=== PATIENT | female | born 1990 ===

== ENCOUNTER 2021-12-17 01:51 | Inpatient (IN) | payer SELFPAY ==
[2021-12-17] MEDS ORDERED: TERBUTALINE 1 MG/1 ML INJ SUB-Q PRN ×2 (02:15→03:01)
[2021-12-17] MEDS ORDERED: CARBOPROST TROMETHAMINE 250 MCG/1 ML INJ IM PRN ×2 (02:15→03:01)
[2021-12-17] MEDS ORDERED: OXYTOCIN 10 UNIT/1 ML INJ IM PRN ×2 (02:15→03:01)
[2021-12-17] MEDS ORDERED: LIDOCAINE (2%) 20 MG/1 ML VIAL 20 ML MDV INFILTRATI ONE ×2 (02:15→03:01)
[2021-12-17] MEDS ORDERED: miSOPROStol 200 MCG TAB PR PRN ×2 (02:15→03:01)
[2021-12-17] MEDS ORDERED: ePHEDrine SULFATE 50 MG/1 ML INJ IV PRN ×2 (02:15→03:01)
[2021-12-17] MEDS ORDERED: LACTATED RINGERS 1,000 ML IV SCH ×2 (02:15→03:15)
[2021-12-17] MEDS ORDERED: MINERAL OIL 30 ML ORAL LIQD PO PRN ×2 (02:15→03:01)
[2021-12-17] MEDS ORDERED: METHYLERGONOVINE MALEATE 0.2 MG/ML VIAL IM PRN ×2 (02:15→03:01)
[2021-12-17] MEDS ORDERED: LOPERAMIDE 2 MG CAP PO PRN ×2 (02:15→03:01)
[2021-12-17] MEDS ORDERED: LACTATED RINGERS 1,000 ML ONE (02:21)
[2021-12-17] MEDS ORDERED: AMPICILLIN/NS 2 GM/100 ML 2 GM/100 ML BAG IV ONE ×2 (02:45→02:50)
[2021-12-17 02:55] LABS: Hemoglobin 11.6 gm/dl (10.1-14.3); Mean Corpuscular HGB Conc 32 % (30-34); Mean Corpuscular Volume 82 fl (79-97); Platelet Count 291 K/mm3 (140-440); Red Blood Count 4.41 M/mm3 (3.65-5.03); Red Cell Distribution Width 14.8 % (13.2-15.2)
[2021-12-17] MEDS ORDERED: OXYTOCIN DRIP 30 UNITS/500 ML BAG IV SCH ×4 (03:00→04:00)
[2021-12-17] MEDS ORDERED: ACETAMINOPHEN 325 MG TAB PO PRN (03:01)
[2021-12-17] MEDS ORDERED: NalbUPHINE 10 MG/1 ML INJ IV PRN (03:01)
[2021-12-17] MEDS ORDERED: PROMETHAZINE 25 MG TAB PO PRN (03:01)
[2021-12-17] MEDS ORDERED: fentaNYL 100 MCG/2 ML INJ IV PRN (03:01)
--- NOTE | 2021-12-17 03:44 | History and Physical Report ---
History of Present Illness Date of examination: 12/17/21 Chief complaint: ctx History of present illness: at 38.6wks with EDC 12/27/21 per pt. records not available. I was called by triage nurse pt in active labor from [facility] covered by [facility]. Pt admits to movement, SROM in triage clear fluid, painful ctx however pt declines pain med and pt admits to vag spotting. Denies headache. Past History Past Medical History: no pertinent history Past Surgical History: no surgical history Social history: no significant social history - Obstetrical History Expected Date of Delivery: 12/25/21 Actual Gestation: 38 Week(s) 6 Day(s) : 3 Hx # Term Pregnancies: 2 Number of Living Children: 2 Medications and Allergies Allergies Allergy/AdvReac Type Severity Reaction Status Date / Time No Known Allergies Allergy Verified 12/17/21 02:20 Active Meds: Active Medications Carboprost Tromethamine (Carboprost Tromethamine 250 Mcg/1 Ml Inj) 250 mcg IM ONCE PRN PRN Reason: Uterine Bleeding Ephedrine Sulfate (Ephedrine Sulfate 50 Mg/1 Ml Inj) 10 mg IV Q2M PRN PRN Reason: Hypotension Oxytocin/Sodium Chloride (Pitocin/Ns 30 Unit/500ml) 30 units in 500 mls @ 2 mls/hr IV TITR HEIKE; Protocol Lactated Ringer's (Lactated Ringers) 1,000 mls @ 125 mls/hr IV DIRECT HEIKE Oxytocin/Sodium Chloride (Pitocin/Ns 30 Unit/500ml) 30 units in 500 mls @ 40 mls/hr IV TITR HEIKE; Protocol Ampicillin Sodium (Ampicillin/Ns 2 Gm/100 Ml) 2 gm in 100 mls @ 100 mls/hr IV ONCE ONE; Protocol Stop: 12/17/21 03:49 Loperamide HCl (Loperamide 2 Mg Cap) 2 mg PO ONCE PRN PRN Reason: give with Hemabate Methylergonovine Maleate (Methylergonovine Maleate 0.2 Mg/Ml Vial) 0.2 mg IM ONCE PRN PRN Reason: Uterine Bleeding Mineral Oil (Mineral Oil 30 Ml Oral Liqd) 30 ml PO QHS PRN PRN Reason: Constipation Misoprostol (Misoprostol 200 Mcg Tab) 800 mcg [place] ONCE PRN PRN Reason: Uterine Bleeding Oxytocin (Oxytocin 10 Unit/1 Ml Inj) 10 unit IM ONCE PRN PRN Reason: Uterine Bleeding Terbutaline Sulfate (Terbutaline 1 Mg/1 Ml Inj) 0.25 mg SUB-Q ONCE PRN PRN Reason: Hyperstimulation/Hypertonicity Review of Systems All systems: negative (ctx and SROM in triage) - Vital Signs Vital signs: Vital Signs Pulse BP 89 129/75 12/17/21 02:31 12/17/21 02:31 Temp Pulse Resp BP Pulse Ox 99 H 129/75 99 12/17/21 03:04 12/17/21 02:31 12/17/21 03:04 - Physical Exam Breasts: Positive: deferred Cardiovascular: Regular rate Lungs: Positive: Normal air movement Genitourinary (Female): Positive: normal external genitalia Vagina: Positive: normal moisture Uterus: Positive: enlarged (non-tender, gravid) Extremities: Positive: normal - Obstetrical FHR: category 1 Uterine Contraction Monitor Mode: External Cervical Dilatation: 9.5 (6-7cm in triage by nurse) Cervical Effacement Percentage: 100 station: 0 Uterine Contraction Pattern: Regular Uterine Contraction Intensity: Strong/Firm Results Result Diagrams: 12/17/21 02:22 Abnormal lab results 12/17/21 Range/Units 02:22 WBC 12.8 H (4.5-11.0) K/mm3 MCH 26 L (28-32) pg All other labs normal. Assessment and Plan Term preg in active labor, unknown GBS and currently receiving 1st dose of PCN 1. Admit to labor and delivery 2. Prepare for delivery now Expect . 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
--- NOTE | 2021-12-17 03:56 | Procedure Note ---
OB Delivery Note - Delivery Date of Delivery: 12/17/21 Surgeon: TRACIE STARKEY Estimated blood loss: other (150cc) - Vaginal Delivery presentation: vertex Delivery position: OA Intrapartum events: precipitous labor- <3hr (Unknown GBS) Delivery induction: none Delivery monitor: external FHT, external uterine Route of delivery: Delivery placenta: spontaneous Delivery cord: 3 umbilical vessels Episiotomy: none Delivery laceration: 1st degree (repaired with 2-0 chromic figure of 8 suture x1) Delivery repair: chromic Anesthesia: none Delivery comments: Precipitous SAVD uncomplicated with viable male presenting with both shoulders at the same time. No ADONIS nurse available for delivery. Charge nurse took care of baby and gave APGARS. Placenta delivered spontaneous complete and intact with 3v cord. Cervix visualized and no lacerations seen. Pt sustained 1st degree laceration and nurse states no lidocaine available due to shortage in hospital. Pt told and I was allowed with repair with figure of 8 x1 using chromic 2-0 suture. Pt given IV pitocin and bimanual done with uterine fundus firm. Mom and baby stable. EBL 150cc. Possible contaminated of laceration with pt having semiformed light brown stool during labor. - Infant A at 1 minute: 8 at 5 minutes: 9 Infant Gender: Male (wt 3260g; clear amniotic fluid)
[2021-12-17 04:29] LABS: Basophils # (Auto) 0.1 K/mm3 (0.0-0.1); Basophils % (Auto) 0.9 % (0.0-1.8); Eosinophils # (Auto) 0.1 K/mm3 (0.0-0.4); Eosinophils % (Auto) 0.7 % (0.0-4.3); Hematocrit 35.6 % (30.3-42.9); Hemoglobin 11.7 gm/dl (10.1-14.3); Lymphocytes # (Auto) 2.7 K/mm3 (1.2-5.4); Lymphocytes % (Auto) 21.5 % (13.4-35.0); Mean Corpuscular HGB Conc 33 % (30-34); Mean Corpuscular Volume 82 fl (79-97); Monocytes # (Auto) 0.8 K/mm3 (0.0-0.8); Monocytes % (Auto) 6.2 % (0.0-7.3); Platelet Count 290 K/mm3 (140-440); Red Blood Count 4.34 M/mm3 (3.65-5.03); Red Cell Distribution Width 14.8 % (13.2-15.2)
[2021-12-17 04:39] LABS: Hepatitis C Virus Antibody Non-Reactive (NonReactive)
[2021-12-17] MEDS ORDERED: AMPICILLIN/NS 1 GM/50 ML 1 GM/50 ML BAG IV SCH (06:30)
[2021-12-17] MEDS ORDERED: BENZOCAINE/MENTHOL 20/0.5% TOP SPRAY 56 GM TP PRN (13:26)
--- NOTE | 2021-12-17 13:29 | Progress Note ---
Assessment and Plan A: day of delivery S/P vaginal . P: Continue routine care. H&H ordered. Subjective - Subjective Date of service: 12/17/21 Principal diagnosis: day of delivery Patient reports: appetite normal, voiding normally, pain well controlled, flatus, ambulating normally, no dizzy ambulation, no nauseated [place]: doing well Objective - Vital Signs Latest vital signs: Vital Signs Temp Pulse Resp BP Pulse Ox Pulse Ox 12/17/21 08:55 98.0 F 74 22 97/52 95 12/17/21 08:50 95 12/17/21 06:18 99 12/17/21 05:54 98.8 F 76 18 116/63 98 12/17/21 05:38 86 97 12/17/21 05:33 84 97 12/17/21 05:28 81 97 12/17/21 05:23 76 97 12/17/21 05:18 77 97 12/17/21 05:13 77 98 12/17/21 05:08 73 98 12/17/21 05:03 79 98 12/17/21 04:58 78 98 12/17/21 04:49 88 112/58 98 12/17/21 04:44 89 98 12/17/21 04:39 97 H 98 12/17/21 04:36 98.7 F 16 99 12/17/21 04:34 89 98 12/17/21 04:29 81 98 12/17/21 04:24 82 99 12/17/21 04:19 89 98 12/17/21 04:14 85 98 12/17/21 04:09 94 H 98 12/17/21 04:04 89 98 12/17/21 03:59 84 98 12/17/21 03:54 81 99 12/17/21 03:49 84 120/70 98 12/17/21 03:44 85 99 12/17/21 03:39 82 99 12/17/21 03:34 81 98 12/17/21 03:29 85 98 12/17/21 03:24 82 99 12/17/21 03:19 89 99 12/17/21 03:14 82 99 12/17/21 03:09 84 98 12/17/21 03:04 99 H 99 12/17/21 02:59 90 98 12/17/21 02:31 89 129/75 Intake and Output 12/16/21 12/17/21 12/17/21 23:59 07:59 15:59 Intake Total 360 Output Total 200 1250 Balance -200 -890 Intake: Oral 360 Output: Urine 200 1250 Void 200 1250 Other: Total, Intake Amount 240 Total, Output Amount 200 800 # Voids Void 1 Weight 193 kg Estimated Blood Loss 150 Patient Weight 12/17/21 23:59 Weight 193 kg - Exam Cardiovascular: Present: Regular rate Lungs: Present: Clear to auscultation Abdomen: Present: normal appearance, soft. Absent: distention, tenderness, guarding, rigidity Uterus: Present: normal, firm, fundal height below umbilicus (fundus firm and midline at 1 FB below umbilicus). Absent: bogginess, tenderness Extremities: Absent: tenderness - Labs Labs: Abnormal lab results 12/17/21 12/17/21 Range/Units 01:50 02:22 WBC 12.6 H 12.8 H (4.5-11.0) K/mm3 MCH 27 L 26 L (28-32) pg Seg Neutrophils % 70.7 H (40.0-70.0) % Seg Neutrophils # 8.9 H (1.8-7.7) K/mm3
[2021-12-17 20:23] LABS: Hematocrit 31.4 % (30.3-42.9); Hemoglobin 10.5 gm/dl (10.1-14.3)
--- NOTE | 2021-12-18 06:20 | Progress Note ---
Assessment and Plan A: day 1 S/P . Anemia. P: Discharge patient home today. Discussed with patient discharge instructions and warning signs. Advised patient to continue taking her vitamin and iron supplements at home. Advised patient to avoid intercourse, lifting, and housework. Advised patient to follow up at [facility] in 2 weeks. Patient voiced understanding of all instructions. Subjective - Subjective Date of service: 12/18/21 Principal diagnosis: day 1 S/P Interval history: Patient requests discharge home today. Patient reports: appetite normal, voiding normally, pain well controlled, flatus, ambulating normally, no dizzy ambulation, no nauseated : doing well Objective - Vital Signs Latest vital signs: Vital Signs Temp Pulse Resp BP BP Pulse Ox Pulse Ox 12/18/21 05:40 98 12/18/21 03:45 98 12/18/21 01:28 98 12/18/21 01:10 98.2 F 68 18 104/50 97 12/17/21 23:57 98 12/17/21 21:35 98 12/17/21 20:10 95 12/17/21 17:24 98.1 F 71 20 109/64 97 12/17/21 12:20 98.5 F 70 20 97/54 98 12/17/21 08:55 98.0 F 74 22 97/52 95 12/17/21 08:50 95 12/17/21 06:18 99 Intake and Output 12/17/21 12/17/21 12/18/21 15:59 23:59 07:59 Intake Total 360 840 Output Total 1250 Balance -890 840 Intake: Oral 360 360 Intake, Free Water 480 Output: Urine 1250 Void 1250 Other: Total, Intake Amount 240 360 Total, Output Amount 800 # Voids Void 2 1 - Exam Cardiovascular: Present: Regular rate Lungs: Present: Clear to auscultation Abdomen: Present: normal appearance, soft, normal bowel sounds. Absent: distention, tenderness, guarding, rigidity Uterus: Present: normal, firm, fundal height below umbilicus (fundus firm and midline at 2 FB below umbilicus). Absent: bogginess, tenderness Extremities: Absent: tenderness
--- NOTE | 2021-12-18 06:23 | Discharge Summary ---
Providers - Providers Date of Admission: 12/17/21 03:01 Date of discharge: 12/18/21 Attending physician: TRACIE STARKEY Primary care physician: TRACIE STARKEY Hospitalization Reason for admission: active labor Delivery: Laceration: 1st degree Other procedures: none complications: none Discharge diagnosis: IUP at term delivered baby: male Pertinent studies: Labs Hospital course: Stable hospital course Condition at discharge: Good Disposition: 01 HOME / SELF CARE / HOMELESS - Discharge Diagnoses (1) Term delivered Status: Acute (2) Anemia Status: Acute Plan - Provider Discharge Summary Activity: routine, no sex for 6 weeks, no heavy lifting 4 weeks, no strenuous exercise Diet: routine Instructions: routine Additional instructions: Continue taking your vitamin and iron supplements at home. Follow up at [facility] in 2 weeks. Call your doctor immediately for: * Fever > 100.5 * Heavy vaginal bleeding ( >1 pad per hour) * Severe persistent headache * Shortness of breath * Reddened, hot, painful area to leg or breast - Follow up plan Follow up: [facility] [Referring] - 14 Days
[2021-12-18] MEDS ORDERED: FERROUS SULFATE 325 MG TAB PO SCH (10:00)
[2021-12-18 16:00] VITALS: BP 128/77
== END 2021-12-18 16:10 | disposition home or self-care (01) | DRG 807 ==
LOC: TRG 01:51 → APU 01:52 → LD 03:01 → TRG 03:01 → OB 06:11
PROVIDERS: ADMIT Obstetrics & Gynecology; ATTEND Obstetrics & Gynecology
PROC: 10E0XZZ Delivery of Products of Conception, External Approach (ICD-10-PCS; principal; 2021-12-17)
PROC: 0HQ9XZZ Repair Perineum Skin, External Approach (ICD-10-PCS; 2021-12-17)
DX: O62.3 Precipitate labor (principal); Z37.0 Single live birth; O99.02 Anemia complicating childbirth; Z20.822 Contact with and (suspected) exposure to COVID-19; O70.0 First degree perineal laceration during delivery; Z3A.38 38 weeks gestation of pregnancy
CPT/HCPCS: 36415; 85014; 85018; 85025; 85027; 86592; 86706; 86762; 86803; 86850; 86900; 86901; 87806; G0378; J0290; J2590; J7120; U0003